=== PATIENT | male | born 1970 | race Caucasian/White ===

== ENCOUNTER 2023-07-16 12:26 | Emergency (ER) | payer SELFPAY ==
[~2023-07-16] VITALS: Ht 172.7 cm; Wt 73.0 kg
[2023-07-16 12:37] VITALS: O2SAT 99
[2023-07-16] MEDS ORDERED: LIDOCAINE HCL/PF 1% 10 MG/ML 5ML VIAL INFIL ONE (14:15)
[2023-07-16] MEDS ORDERED: BACITRACIN ZINC OINT UDPKT TOP ONE (14:15)
[2023-07-16] MEDS ORDERED: VANCOMYCIN 1G PREMIX 200 ML IV SCH (15:15)
[2023-07-16 15:25] LABS: CHLORIDE 105 mEq/L (98-107); POTASSIUM 3.7 mEq/L (3.5-5.1); SODIUM 139 mEq/L (136-145)
[2023-07-16] MEDS: MORPHINE SULFATE 4 MG/ML INJ (FOR IV/IM USE) IV ONE (15:25)
[2023-07-16 15:26] LABS: CALCIUM 9.2 mg/dL (8.7-10.4); CARBON DIOXIDE 28 mEq/L (21-32)
[2023-07-16 15:31] LABS: CREATININE 1.2 mg/dL (0.6-1.3); GLUCOSE 108 mg/dL (70-105); UREA NITROGEN BLOOD 12 mg/dL (9-23)
[2023-07-16 15:34] LABS: ETHANOL BLOOD < 10 mg/dL (<10)
[2023-07-16] MEDS ORDERED: LEVETIRACETAM 1,000 MG in SODIUM CHLORIDE 0.9% 100 ML IV SCH (15:45)
[2023-07-16 16:04] LABS: DIFFERENTIAL COMMENT 1; HEMATOCRIT. 40.2 % (42.0-52.0); HEMOGLOBIN. 13.2 g/dL (14.0-18.0); MEAN CORPUSCULAR HEMOGLOBIN 27.9 pg (28.0-32.0); MEAN CORPUSCULAR HGB CONC 32.8 g/dL (31.0-37.0); MEAN PLATELET VOLUME 7.3 fl (7.4-10.4); PLATELET 483 x1000/uL (130-400); RED BLOOD CELL COUNT 4.73 mill/uL (4.7-6.1); WHITE BLOOD COUNT 15.2 x1000/uL (4.5-11.0)
[2023-07-16] MEDS: CEFTRIAXONE 2GM/50ML 50 ML IV ONE (16:21)
[2023-07-16] MEDS: LEVETIRACETAM 1000MG PREMIX 100 ML IV SCH (16:21)
[2023-07-16 16:33] LABS: PLATELET ESTIMATE SLIGHTLY INCREASED
[2023-07-16 16:40] VITALS: BP 151/83; PULSE 56; RESP 15; TEMP 98.2
== END 2023-07-16 16:58 | disposition short-term general hospital (02) ==
LOC: ER 12:26
DX: S62.634A Displaced fracture of distal phalanx of right ring finger, initial encounter for closed fracture (principal); S01.81XA Laceration without foreign body of other part of head, initial encounter; W18.39XA Other fall on same level, initial encounter; Y93.89 Activity, other specified; Y92.89 Other specified places as the place of occurrence of the external cause; Y99.8 Other external cause status
CPT/HCPCS: 80048; 80320; 85025; 36415; 73080; 73090; 73110; 73130; 70450; 70486; 72125; 96368; 96365; 96375; 99285; J1953; J0696; J3370; J2270; Z7610; J7050; G0480

== ENCOUNTER 2023-08-09 19:11 | Emergency (ER) | payer MEDICAID ==
[~2023-08-09] VITALS: Ht 170.2 cm; Wt 69.0 kg
[2023-08-09 19:18] VITALS: TEMP 97.8; O2SAT 98
[2023-08-09] MEDS: TETANUS, DIPHTHERIA, PERTUSSIS VAC/PF 0.5ML (>10YR OLD) IM ONE (19:45)
[2023-08-09] MEDS: LIDOCAINE HCL/PF 1% 10 MG/ML 5ML VIAL INFIL ONE (19:45)
[2023-08-09] MEDS: BACITRACIN ZINC OINT UDPKT TOP ONE (19:45)
[2023-08-09 21:00] VITALS: BP 132/89; PULSE 72; RESP 16
[2023-08-09] MEDS: KETOROLAC 15MG/ML VIAL IM ONE (21:00)
[2023-08-09] MEDS ORDERED: SULF1TAB48 MT (21:23)
[2023-08-09] MEDS ORDERED: DOXY100T2 MT (21:23)
== END 2023-08-09 23:41 | disposition home or self-care (01) ==
LOC: ER 19:11
DX: L02.31 Cutaneous abscess of buttock (principal)
CPT/HCPCS: 99283; 96372; J3490

== ENCOUNTER 2024-11-09 16:24 | Emergency (ER) | payer MEDICAID ==
[~2024-11-09] VITALS: Ht 175.3 cm; Wt 75.0 kg
[~2024-11-09 16:24] MED LIST: DOXY100T2 MT; SULF1TAB48 MT
[2024-11-09 16:30] VITALS: O2SAT 99
[2024-11-09] MEDS ORDERED: OXYC-105 MT (18:39)
[2024-11-09] MEDS ORDERED: CELE100C MT (18:39)
[2024-11-09] MEDS: OXYCODONE HCL/ACETAMINOPHEN 5/325MG TABLET PO STA (19:03)
[2024-11-09] MEDS: KETOROLAC 30MG/ML VIAL IM STA (19:03)
[2024-11-09 19:08] VITALS: BP 150/107; PULSE 69; RESP 18; TEMP 36.9; O2SAT 99
== END 2024-11-09 19:11 | disposition home or self-care (01) ==
LOC: ER 16:24
DX: R07.81 Pleurodynia (principal); M71.521 Other bursitis, not elsewhere classified, right elbow; Z98.890 Other specified postprocedural states; Z79.899 Other long term (current) drug therapy
CPT/HCPCS: 99283; 71101; 93005; 96372; J1885

== ENCOUNTER 2025-01-18 21:08 | Emergency (ER) | payer MEDICAID ==
[~2025-01-18] VITALS: Ht 167.6 cm; Wt 70.1 kg
[~2025-01-18 21:08] MED LIST changes: +CELE100C MT; +OXYC-105 MT
[2025-01-18 21:22] VITALS: O2SAT 99
[2025-01-18 21:35] VITALS: BP 170/100; PULSE 90; RESP 16; TEMP 36.9; O2SAT 98
[2025-01-18] MEDS ORDERED: VANCOMYCIN 1G PREMIX 200 ML IV SCH (23:15)
[2025-01-19] MEDS ORDERED: PIPERACILLIN/TAZO 3.375G/50ML 50 ML IV SCH (09:00)
== END 2025-01-19 00:34 | disposition left against medical advice (07) ==
LOC: ER 21:08 → CMPBEDREQ 01-19 07:48
DX: L03.113 Cellulitis of right upper limb (principal); Z79.1 Long term (current) use of non-steroidal anti-inflammatories (NSAID)
CPT/HCPCS: 99282